=== PATIENT | female | born 1990 | race Caucasian/White ===

== ENCOUNTER → 2025-07-22 | Outpatient (CLI) | payer BC ==
[~2025-07-22] MED LIST: PROHANCE 279.3MG/ML 15ML VIAL ONE; PROHANCE 279.3MG/ML 5ML VIAL ONE
== END ==
LOC: M PLAIMG 14:53
PROVIDERS: ATTEND Surgery
DX: Z15.09 Genetic susceptibility to other malignant neoplasm (principal)
CPT/HCPCS: A9579; C8908